=== PATIENT | male | born 1980 | race Asian ===

== ENCOUNTER 2021-02-05 18:01 | Emergency (ER) | payer BC ==
[~2021-02-05] VITALS: Ht 182.9 cm; Wt 79.5 kg
[2021-02-05 18:05] VITALS: BP 118/85
[2021-02-05 19:39] LABS: CLARITY,URINE CLEAR (Clear); COLOR,URINE YELLOW (Yellow); GLUCOSE, URINE NEGATIVE (Neg); KETONES,URINE NEGATIVE (Neg); LEUKOCYTE ESTERASE ,URINE NEGATIVE (Neg); NITRITES, URINE NEGATIVE (Neg); OCCULT BLOOD,URINE MODERATE (Neg); PH,URINE 5.5 (4.8-8.0); PROTEIN,URINE NEGATIVE (Neg); UROBILINOGEN,URINE 0.2 E.U/dL (0.2-1.0)
[2021-02-05] MEDS ORDERED: sulfamethoxazole/trimethoprim DS (800/160mg) tablet PO ONE (19:50)
[2021-02-05] MEDS ORDERED: SULF1TAB49 PO (19:51)
[2021-02-05 21:10] LABS: UA COLLECTION TYPE CLN CATCH MIDSTREAM
[2021-02-05 21:12] LABS: WBC,URINE NONE SEEN /HPF (0-4)
--- NOTE | 2021-02-05 21:12 | NUR ---
ULTRA SOUND PAGED FOR FAST TRACK A
[2021-02-05 21:14] LABS: BACTERIA,URINE NONE SEEN /HPF (Neg); SQUAMOUS EPITHELIAL CELL,UR NONE SEEN /LPF (FEW)
== END 2021-02-05 23:16 | disposition home or self-care (01) ==
LOC: ER 18:01
DX: N45.1 Epididymitis (principal); R10.32 Left lower quadrant pain; Z87.442 Personal history of urinary calculi; Z90.89 Acquired absence of other organs; Z72.89 Other problems related to lifestyle; Z79.2 Long term (current) use of antibiotics
CPT/HCPCS: 76770; 76870; 81001; 93976; 99285